=== PATIENT | female | born 1975 | race Caucasian/White ===

== ENCOUNTER 2024-11-24 07:11 | Day surgery (SDC) | payer OTHER ==
[2024-11-24] MEDS ORDERED: fentaNYL 100 MCG/2 ML SDV ONE (07:43)
[2024-11-24] MEDS ORDERED: Propofol 200 MG/20 ML SDV ONE (07:43)
[2024-11-24] MEDS ORDERED: Midazolam 1 MG/ML 2 ML SDV ONE (07:43)
[2024-11-24] MEDS: Lactated Ringers 1,000 ML IV SCH (08:00)
== END 2024-11-24 10:04 | disposition home or self-care (01) ==
LOC: JP.SDS 07:11
PROVIDERS: ATTEND Surgery
DX: Z12.11 Encounter for screening for malignant neoplasm of colon (principal); K21.9 Gastro-esophageal reflux disease without esophagitis; E66.9 Obesity, unspecified
CPT/HCPCS: 00813; 43239; 45378; J2250; J2704; J3010; J7120; 88305